=== PATIENT | female | born 1970 | race Caucasian/White ===

== ENCOUNTER 2019-04-21 12:11 | Emergency (ER) | payer OTHER ==
[~2019-04-21] VITALS: Ht 154.9 cm; Wt 86.8 kg
--- NOTE | 2019-04-21 12:40 | NUR ---
FIRST CONTACT WITH PT. PT C/O PAIN SWELLING OF THE L ANKLE RAD UP THE L LEG TO THE GROIN. DENIES ANY OTHER SX. PT'S AOX4. RESPS EVEN AND UNLABORED. BP/SPO2 MONITORS IN PLACE. CALL LIGHT WITHIN REACH. EDMD AT BEDSIDE TO EVALUATE AT THIS TIME.
--- NOTE | 2019-04-21 13:03 | NUR ---
pt a&o, resps even and unlabored. US in progress at bedside. pt states left leg pain is 7/10 at this time, declines need for pain medication. pt updated with poc, awaiting US results and dispo.
--- NOTE | 2019-04-21 13:27 | NUR ---
all results back, chart up for recheck. awaiting MD and dispo.
--- NOTE | 2019-04-21 14:00 | NUR ---
pt resting in [facility]. pt's aox4. resps even and unlabored.
[2019-04-21 15:19] VITALS: BP 158/87
--- NOTE | 2019-04-21 15:21 | NUR ---
Patient given discharge instructions and they have confirmed that they understand the instructions. Patient ambulatory with steady gait.
== END 2019-04-21 15:22 | disposition home or self-care (01) ==
LOC: ED 14:47
DX: M79.662 Pain in left lower leg (principal)
CPT/HCPCS: 99284

== ENCOUNTER 2020-01-10 08:41 | Day surgery (SDC) | payer OTHER ==
[~2020-01-10] VITALS: Ht 154.9 cm; Wt 84.0 kg
[~2020-01-10 08:41] MED LIST: BUPIVACAINE/PF-EPI 0.5% 1:200K ONE; LIDOCAINE 1%-EPI 1:100K, 20ML ONE
[2020-01-10] MEDS ORDERED: CHLORHEXIDINE 15 ML UDC MM STA (08:54)
[2020-01-10] MEDS ORDERED: LACTATED RINGERS 1,000 ML IV SCH (08:54)
[2020-01-10 08:55] VITALS: BP 167/83
[2020-01-10] MEDS ORDERED: MIDAZOLAM 1 MG/ML, 2ML ONE (09:29)
[2020-01-10] MEDS ORDERED: FENTANYL PF 100 MCG/2ML ONE (09:29)
[2020-01-10] MEDS ORDERED: SUCCINYLCHOLINE 20 MG/ML, 10ML ONE (10:23)
[2020-01-10] MEDS ORDERED: ROCURONIUM 10 MG/ML,10ML ONE (10:23)
[2020-01-10] MEDS ORDERED: PROPOFOL 10 MG/ML, 20ML ONE (10:55)
[2020-01-10] MEDS ORDERED: DEXAMETHASONE 4 MG/ML, 1ML ONE (10:55)
[2020-01-10] MEDS ORDERED: LIDOCAINE-MPF 2% ,5ML ONE ×2 (10:55→10:56)
[2020-01-10] MEDS ORDERED: ONDANSETRON 2MG/ML, 2ML ONE (10:55)
[2020-01-10] MEDS ORDERED: CEFAZOLIN 1,000 MG ONE (10:55)
[2020-01-10] MEDS ORDERED: BUPIVACAINE/PF 0.5% ONE ×2 (10:55)
[2020-01-10] MEDS ORDERED: ALBUTEROL SULFATE 2.5 MG/3 ML NPPB PRN (11:00)
[2020-01-10] MEDS ORDERED: LABETALOL 5MG/ML, 20ML IV PRN (11:00)
[2020-01-10] MEDS ORDERED: PROMETHAZINE 25 MG/ML, 1ML IVPush PRN (11:00)
[2020-01-10] MEDS ORDERED: OXYcodone 5 MG/5 ML ORAL.SOL UDC PO PRN (11:00)
[2020-01-10] MEDS ORDERED: LORazepam 2 MG/ML, 1ML IVPush PRN (11:00)
[2020-01-10] MEDS ORDERED: hydrALAzine 20 MG/ML, 1ML IV PRN (11:00)
[2020-01-10] MEDS ORDERED: ACETAMINOPHEN 325 MG TABLET PO PRN (11:00)
[2020-01-10] MEDS ORDERED: FENTANYL PF 100 MCG/2ML IV PRN (11:00)
[2020-01-10] MEDS ORDERED: MEPERIDINE/PF 25MG/0.5ML IVPush PRN (11:00)
[2020-01-10] MEDS ORDERED: HYDROmorphone 1 MG/ML, 1ML INJ IVPush PRN (11:00)
[2020-01-10] MEDS ORDERED: PROMETHAZINE 25 MG/ML, 1ML ONE (12:32)
[2020-01-10] MEDS ORDERED: LIDOCAINE/PF 1%-EPI 1:200K, 30 ML ONE (17:05)
== END 2020-01-10 14:25 | disposition home or self-care (01) ==
LOC: OUT 08:41
PROVIDERS: ATTEND Orthopaedic Surgery
DX: M25.511 Pain in right shoulder (principal); Z20.828 Contact with and (suspected) exposure to other viral communicable diseases; M75.101 Unspecified rotator cuff tear or rupture of right shoulder, not specified as traumatic; M65.811 Other synovitis and tenosynovitis, right shoulder; M19.011 Primary osteoarthritis, right shoulder; J45.909 Unspecified asthma, uncomplicated; E66.9 Obesity, unspecified; Z68.35 Body mass index [BMI] 35.0-35.9, adult; S43.431A Superior glenoid labrum lesion of right shoulder, initial encounter; Z82.49 Family history of ischemic heart disease and other diseases of the circulatory system
CPT/HCPCS: 29823; 29824; 29826; 29827; 29828; 36415; 64415; 81025; 87635; C1713; J0330; J0690; J1100; J2250; J2405; J2550; J2704; J3010; J3490; J7120

== ENCOUNTER 2020-11-27 18:39 | Emergency (ER) | payer BC, OTHER ==
[~2020-11-27] VITALS: Ht 154.9 cm; Wt 92.9 kg
[2020-11-27] MEDS ORDERED: IBUPROFEN 200 MG TABLET PO ONE (22:30)
[2020-11-27] MEDS ORDERED: ONDANSETRON ODT 4 MG PO ONE (22:30)
[2020-11-27] MEDS ORDERED: OXYcodone/APAP 5/325MG TABLET PO ONE (22:30)
[2020-11-27 22:47] LABS: BASOPHILS % (AUTO) 1 % (0-1); EOSINOPHILS % (AUTO) 5 % (1-7); LYMPHOCYTES % (AUTO) 23 % (22-44); MEAN CORPUSCULAR HEMOGLOBIN 27.3 pg (27.0-34.8); MEAN CORPUSCULAR HGB CONC 33.1 g/dL (32.4-35.8); MEAN PLATELET VOLUME 8.2 fL (7.4-10.4); MONOCYTES % (AUTO) 5 % (2-9); NEUTROPHILS % (AUTO) 67 % (42-75); PLATELET COUNT 298 x10^3/uL (130-400); RED BLOOD COUNT 5.18 x10^6/uL (3.82-5.3); RED CELL DISTRIBUTION WIDTH 14.1 % (9.6-15.2)
[2020-11-27 22:58] LABS: ALANINE AMINOTRANSFERASE 26 U/L (12-78); ANION GAP 4 mmol/L (5-15); CALCIUM 9.4 mg/dL (8.5-10.1); CHLORIDE 109 mmol/L (98-107); CREATININE 1.09 mg/dL (0.55-1.02)
[2020-11-27 23:00] LABS: ALKALINE PHOSPHATASE 91 U/L (45-117); BILIRUBIN,TOTAL 0.3 mg/dL (0.2-1.0); TOTAL PROTEIN 8.1 g/dL (6.4-8.2)
[2020-11-27 23:13] LABS: INTERNATIONAL NORMALIZED RATIO 0.97 (0.93-1.1); PROTHROMBIN TIME 10.4 Seconds (9.6-11.5)
--- NOTE | 2020-11-28 | NUR ---
PT C/O PAIN AND SWELLING TO RIGHT LEG AT MEDIAL UPPER AREA, BELOW GROIN. PT SAYS THE SWELLING IS NOW IN THE RIGHT INGUINAL AREA, AND HAS PAIN. IT'S BEEN OFF AND ON FOR A FEW WEEKS, AND NOW IT'S WORST AND DIFFICULT TO WALK, AND THE SWELLING IS INCREASING AND STARTING TO WRAP AROUND HER UPPER THIGH AREA. NO SKIN REDNESS, NO OBVIOUS SWELLING PATIENT ALSO REPORTING SYNCOPAL LIKE EVENTS (X2) IN THE LAST TWO WEEKS
[2020-11-28] MEDS ORDERED: ONDANSETRON ODT 4 MG ONE (00:12)
[2020-11-28] MEDS ORDERED: OXYcodone/APAP 5/325MG TABLET ONE (00:12)
[2020-11-28] MEDS ORDERED: IBUPROFEN 600 MG TABLET ONE (00:13)
--- NOTE | 2020-11-28 00:28 | NUR ---
MEDICATED PER EMAR FOR PAIN/[place]/INFLAMMATION (RIDE AVAILBLE IN SETTING OF [facility] IF HOME DISPO) CC UA OBTAINED-SENT TO LAB PIV PLACED FOR CT SCAN
[2020-11-28 00:34] LABS: MICROSCOPIC AUTO
[2020-11-28] MEDS ORDERED: OMNIPAQUE 350 MG/ML, 100ML BOTTLE ONE (00:56)
[2020-11-28 02:53] VITALS: BP 113/54
== END 2020-11-28 02:55 | disposition home or self-care (01) ==
LOC: ED 23:50
DX: R60.0 Localized edema (principal); R10.31 Right lower quadrant pain; R11.0 Nausea
CPT/HCPCS: 36415; 73502; 74177; 80053; 81001; 85025; 85610; 85730; 87086; 93971; 99285; Q0162; Q9967